=== PATIENT | male | born 1975 | race Hispanic/Latino ===

== ENCOUNTER 2020-03-29 18:00 | Emergency (ER) | payer SELFPAY ==
[~2020-03-29 18:00] MED LIST: Iopamidol-370 76% 500 ML 1 ML ONE
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
[2020-03-29 18:32] LABS: Hemoglobin 16.1 g/dL (14.0-18.0); Mean Corpuscular Hemoglobin 31.3 pg (27.0-31.0); Mean Platelet Volume 7.8 fL (7.4-10.4); Platelet Count 209 thou/uL (130-400); RBC Distribution Width 12.4 % (11.5-14.5); Red Blood Cell (RBC) Count 5.16 mill/uL (4.70-6.10)
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
[2020-03-29 18:45] LABS: Acetaminophen Less than 6.0 mcg/mL (10.0-30.0); Alcohol 278 mg/dL (Less than 10); Salicylate Less than 8.0 mg/dL (15.0-30.0)
[2020-03-29 18:49] LABS: ALT (SGPT) 36 U/L (8-55); AST (SGOT) 48 U/L (5-34); Albumin 4.7 g/dL (3.5-5.0); Alkaline Phosphatase 78 U/L (40-110); Anion Gap 17 mmol/L (10-20); BUN (Urea Nitrogen) 6 mg/dL (8.9-20.6); Bilirubin, Total 0.4 mg/dL (0.2-1.2); Calc. Creatinine Clearance 0 mL/min (70-130); Carbon Dioxide 20 mmol/L (22-29); Chloride 109 mmol/L (98-107); Estimated GFR-MDRD Greater than 90; Globulin 2.8 g/dL (2.4-3.5); Glucose 114 mg/dL (70-105); Potassium 4.1 mmol/L (3.5-5.1); Protein, Total 7.5 g/dL (6.0-8.3); Sodium 142 mmol/L (136-145)
[2020-03-29] MEDS ORDERED: Bacitracin 1 PK ONE (18:49)
[2020-03-29 18:53] LABS: Band 5 % (5-11); Lymphocytes 29 % (21-51); MDiff Complete? YES; Monocytes 4 % (0-10); Neutrophil 42 % (42-75); Platelet Morphology Comment Appears Adequate; Polychromasia SLIGHT = 2-3 cells (100X) (0-2/hpf); Reactive Lymphocytes 20 % (0-10)
[2020-03-29] MEDS ORDERED: Adacel (T-DAP) 0.5 ML SYRINGE ONE (18:54)
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
[2020-03-29 19:35] LABS: Bacteria/HPF None Seen HPF (None Seen); Bilirubin Negative (Negative); Blood, Urine 2+ (Negative); Clarity Clear (Clear); Glucose, Urine (Dipstick) Normal (Negative); Ketone, Urine Negative (Negative); Leukocyte Negative Leu/uL (Negative); Nitrite Negative (Negative); Protein, Urine (Dipstick) Negative (Neg-Trace); RBC/HPF 0-3 HPF (0-3); Specific Gravity, Urine 1.028 (1.002-1.036); Squamous Epithelial None Seen HPF (0-3); Urobilinogen Normal mg/dL (Less than 2); WBC/HPF 0-3 HPF (0-3); pH, Urine 5.5 (5.0-9.0)
[2020-03-29 20:08] LABS: Amphetamine Not Detected (NotDetected); Barbiturates Screen Not Detected (NotDetected); Benzodiazepine Screen Not Detected (NotDetected); Cocaine Metabolite Screen Detected (NotDetected); Medtox Control Line Valid? VALID (VALID); Medtox Reader # READER 1; Methadone Not Detected (NotDetected); Methamphetamine Not Detected (NotDetected); Opiate Screen Not Detected (NotDetected); Oxycodone Screen Not Detected (NotDetected); Phencyclidine (PCP) Not Detected (NotDetected); THC/Cannabinoid Screen Not Detected (NotDetected); Tricyclic Screen Not Detected (NotDetected)
== END 2020-03-29 20:30 | disposition home or self-care (01) ==
LOC: ERS 18:00
DX: S09.90XA Unspecified injury of head, initial encounter (principal); S20.212A Contusion of left front wall of thorax, initial encounter; S60.222A Contusion of left hand, initial encounter; V89.2XXA Person injured in unspecified motor-vehicle accident, traffic, initial encounter
CPT/HCPCS: 36415; 70450; 71045; 72125; 74177; 80053; 80306; 80307; 81003; 81015; 84484; 85025; 90471; 90715; 93005; G0390; Q9967

== ENCOUNTER 2020-04-07 08:36 | Outpatient (CLI) | payer OTHER ==
--- NOTE | 2020-04-07 09:42 | RAD ---
Exam: XR Humerus Rt 2 View STANDARD HISTORY: Osseous lesion involving the right proximal humerus noted on a prior chest x-ray. Patient does have r ight shoulder pain. COMPARISON: Chest x-ray on 03/29/2020 as well as views of the right shoulder obtained on today's date. FINDINGS: There is a lytic and sclerotic appearing lesion seen in the region of the right humeral head and meta physis of the right proximal humerus. There does appear to be in exophytic component of this lesion located medial to the right proximal humerus. The margins of this exophytic component demonstrate irr egularity and narrow zone of transition with associated lucency. Lesion within the proximal humerus does demonstrate a chondroid matrix. Findings could be attributable to a chondrosarcoma or possibly a n osteochondroma with exophytic component which has undergone malignant transformation. No acute fracture, dislocation, or other acute osseous abnormality is identified. IMPRESSION: 1. Lesion in the proximal right humerus which could be related to chondrosarcoma or secondary to oste ochondroma with malignant transformation involving the exophytic component of the lesion. Orthopedic consultation and MRI right shoulder are recommended. 2. Above findings discussed with Dr. Ambrocio Warner on 04/07/2020 at 0938 hours.
--- NOTE | 2020-04-07 10:03 | RAD ---
THREE VIEWS OF THE RIGHT SHOULDER: DATE: 04/07/2020. COMPARISON: Frontal chest radiograph 03/29/2020. HISTORY: Evaluate lesion of the proximal right humerus. FINDINGS: No widening of the AC or CC interspace. No displaced fracture or dislocation. There is a lesion within the proximal right humerus/right humeral head. It demonstrates a component of chondroid matrix measuring at least 3.7 cm. There is a pedunculated exophytic portion of this les ion which is directed medially and inferiorly from the humeral head. The distal margins of the pedun culated portion of this lesion are irregular and demonstrate lytic change with a wide zone of transit ion. IMPRESSION: Lesion of the proximal right humerus/humeral head with chondroid matrix and a pedunculated/exophytic component. The exophytic component demonstrates irregular lytic margins and a wide zone or transitio n, suspicious for a lesion of high malignant potential. 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 Orthopedic consultation and MRI advised secondary to concern for chondrosarcoma. This study was evaluated in consultation with Dr. Saldivar. CODE T POS: [facility]
== END 2020-04-07 08:37 | disposition home or self-care (01) ==
LOC: BICRAD 08:36
PROVIDERS: ATTEND Family Medicine
DX: M25.511 Pain in right shoulder (principal); M25.811 Other specified joint disorders, right shoulder